=== PATIENT | female | born 1955 | race Hispanic/Latino ===

== ENCOUNTER → 2019-04-06 | Day surgery (SDC) | payer MEDICARE ==
[2019-04-05 11:28] LABS: BASOPHILS # (AUTO) 0.1 (0.0-0.1); BASOPHILS % 0.8 % (0.0-1.0); EOSINOPHILS # (AUTO) 0.4 (0.0-0.4); EOSINOPHILS % 4.2 % (0.0-6.0); HEMOGLOBIN 13.7 g/dL (12.0-16.0); LYMPHOCYTES # (AUTO) 2.4 (1.0-3.2); LYMPHOCYTES % 27.6 % (18.0-39.1); MEAN CORPUSCULAR HEMOGLOBIN 30.4 pg (28-32); MEAN CORPUSCULAR HGB CONC 31.9 g/dL (31-35); MEAN CORPUSCULAR VOLUME 95.3 fL (81-99); MONOCYTES # (AUTO) 0.5 (0.2-0.8); MONOCYTES % 6.1 % (4.4-11.3); NEUTROPHILS # (AUTO) 5.3 (2.1-6.9); NEUTROPHILS % 61.2 % (38.7-80.0); PLATELET COUNT 309 x10e3/uL (140-360); RED BLOOD COUNT 4.51 x10e6/uL (3.6-5.1); RED CELL DISTRIBUTION WIDTH 13.2 % (11.7-14.4)
[2019-04-05 11:44] LABS: BLOOD UREA NITROGEN 12 mg/dL (7-26); BUN/CREATININE RATIO 16 (6-25); CALCIUM 9.2 mg/dL (8.4-10.2); CARBON DIOXIDE 30 mmol/L (22-29); CHLORIDE 101 mmol/L (98-107); CREATININE, SERUM 0.74 mg/dL (0.57-1.11); EST GLOMERULAR FILTRATION RATE > 60 ML/MIN (60-); GLUCOSE 104 mg/dL (74-118); SODIUM 139 mmol/L (136-145)
--- NOTE | 2019-04-05 12:07 | Diagnostic Imaging Report ---
EXAMINATION: CHEST 2 VIEWS INDICATION: Pre-operative COMPARISON: None FINDINGS: LINES/TUBES:None LUNGS:The lung volumes are low. No focal consolidation or pulmonary edema. Bibasilar subsegmental atelectasis. PLEURA:No pleural effusion or pneumothorax. MEDIASTINUM:The cardiomediastinal silhouette appears normal in size and shape. Atherosclerotic calcifications of the thoracic aorta. BONES/SOFT TISSUES:No acute osseous injury. ABDOMEN:No free air under the diaphragm. Status post cholecystectomy. IMPRESSION: Low lung volumes. No focal pneumonia or pulmonary edema. Mild bibasilar subsegmental atelectasis. Signed by: Kayce Luis MD on 04/05/2019 12:04 PM
[~2019-04-06] MED LIST: ACETAMINOPHEN 1000 MG/100 ML IV ONE; ALBUTEROL SULF 0.083% NEB SOLN 3 ML NEB ONE; ALBUTEROL0.63 MG/3 INH; AMLODIPINE BESYL5 MG PO; ANORO INH; BENICAR HCT 401 EACH PO; BUPIVACAINE 0.5%/EPI 30 ML SDV INJ ONE; CEFAZOLIN SOD 1 GM/NS 50ML 100 ML IV ONE; DEXAMETHASONE SOD PHOS INJ 4 MG/ML VIAL ONE; EPINEPHRINE 1 MG/ML 30ML VIAL ONE; FENTANYL CITRATE/PF 100MCG/2 ML INJ ONE; HYDROMORPHONE 2MG/ML 2 MG/ML ML ONE; LIDOCAINE 2%/ EPINEPHRINE 20ML MDV ONE; LIDOCAINE HCL 2% JELLY 5 ML TUBE ONE; LIDOCAINE HCL 2% LOCAL INJ 5 ML SDV VIAL INJ ONE; METOCLOPRAMIDE HCL 10 MG/2ML VIAL ONE; MIDAZOLAM HCL 2 MG/2 ML VIAL ONE; NAPROXEN250 MG PO; ONDANSETRON HCL INJ 2MG/ML 2ML 2 MG/ML VIAL ONE; PROPOFOL IV EMULSION 10 MG/ML 20 ML VIAL ONE; ROCURONIUM BROMIDE 10 MG/ML 5ML VIAL ONE; ROPIVACAINE 0.5% 5 MG/ML 30 ML SDV ONE; SEVOFLURANE INHAL SOLN 250 ML PEN BTL ONE
--- OUTSIDE RECORDS SUMMARY | 2019-04-06 06:19 | XMS REPORT ---
Author Author [facility] Address Unknown Phone Unavailable Care Team Providers Care Hand Hide Stretcher Name Role Phone ROM ARMANDO Unavailable Unavailable Payers Payer Name Policy Type Policy Number Effective Date Expiration Date Problems This patient has no known problems. Allergies, Adverse Reactions, Alerts Allergy Name Allergy Type Status Severity Reaction(s) Onset Date Inactive Date Treating Clinician Comments No Known Allergies DA Active U 2018-03-29 00:00:00 Medications This patient has no known medications. Results Test Description Test Time Test Comments Text Results Atomic Results Result Comments CHEST 2 VIEWS 2019-04-05 12:03:00 [place] [address] Patient Name: MARCELA QUINTERO MR #: [id number] : 1955 Age/Sex: 64/F Req #: [id number] Adm Physician: Ordered by: ROM ARMANDO MD Report #: [id number] Location: OR Room/Bed: Procedure: [id number] DX/CHEST 2 VIEWS Exam Date: 04/05/19 Exam Time: 1105 REPORT STATUS: Signed EXAMINATION: CHEST 2 VIEWS INDICATION: Pre-operative COMPARISON: None FINDINGS: LINES/TUBES:None LUNGS:The lung volumes are low. No focal consolidation or pulmonary edema. Bibasilar subsegmental atelectasis. PLEURA:No pleural effusion or pneumothorax. MEDIASTINUM:The cardiomediastinal silhouette appears normal in size and shape. Atherosclerotic calcifications of the thoracic aorta. BONES/SOFT TISSUES:No acute osseous injury. ABDOMEN:No free air under the diaphragm. Status post cholecystectomy. IMPRESSION: Low lung volumes. No focal pneumonia or pulmonary edema. Mild bibasilar subsegmental atelectasis. Signed by: Luz Maria Newton MD on 04/05/2019 12:04 PM Dictated By: LUZ MARIA NEWTON MD 1204 Transcribed By: HENRY on 04/05/19 1204 COPY TO: ROM ARMANDO MD
[2019-04-06 11:30] VITALS: BP 132/65
--- NOTE | 2019-04-07 14:12 | Operative Report ---
DATE OF PROCEDURE: 04/06/2019 SURGEON: Faheem Vick MD PREOPERATIVE DIAGNOSES: Left shoulder rotator cuff tear, left shoulder acromioclavicular joint arthritis. POSTOPERATIVE DIAGNOSES: Left shoulder partial rotator cuff tear, left shoulder synovitis, left shoulder intra-articular loose body, left shoulder labral tear, left shoulder acromioclavicular joint arthritis. OPERATIONS AND PROCEDURES PERFORMED: The patient underwent a left shoulder examination under anesthesia, a left shoulder arthroscopy, left shoulder debridement of synovitis, a left shoulder arthroscopic debridement of a partial rotator cuff tear, left shoulder removal of intra-articular loose body, a left shoulder arthroscopic biceps tenodesis, a left shoulder arthroscopic subacromial decompression and acromioplasty and a left shoulder arthroscopic distal clavicle resection. MEDICAL CENTER MANAGER: Janina Braga. ANESTHESIA: Regional block plus general anesthesia. IV FLUIDS: Per the anesthesia record. BLOOD LOSS: Less than 10 mL. BRIEF DESCRIPTION OF THE PATIENT'S OPERATIVE PROCEDURE: Ms. Welch was taken to the operating room, placed in the supine position on the operating table. Following the application of a regional block and general anesthesia, the patient's surgical table was converted to a beach chair type position. Examination of the left shoulder demonstrated no gross abnormalities. Passive range of motion of the shoulder joint was full. There was no evidence of instability. The patient's shoulder and upper extremity were prepped and draped in standard surgical fashion. Standard posterolateral and anterior portals were created without difficulty. The scope was placed in the shoulder joint atraumatically. Examination of the glenohumeral articulation demonstrated no significant evidence of arthrosis. There was an intra-articular loose body within the shoulder joint. There was a mild articular surface rotator cuff tear. A probe was placed in the shoulder joint. Examination of the biceps tendon found up the tendon was intact. The anchor of the biceps tendon, however, was severely torn. There was also deficient tissue anteriorly. The labral injury was debrided and given the degree of damage, decision was made to provide the patient a biceps tenodesis. The rotator interval was debrided using a motorized shaver. Sutures were shuttled through the rotator interval capturing the biceps tendon. The biceps tendon was then released from its insertion into the superior rim of the labrum. A shaver was then used to remove the intra-articular loose body. The rotator cuff injury was also debrided at this time. The shoulder also demonstrated diffuse synovitis and the synovitis was debrided at this time. The shoulder was inflated with sterile normal saline. The scope was placed in the subacromial space and significant bursal inflammation was encountered. A lateral portal was created to an outside in technique. The shaver was placed in the shoulder and a bursectomy was performed. The sutures for the biceps tenodesis were identified at the rotator interval. These sutures were captured and tied over the rotator interval completing the biceps tenodesis. The coracoacromial ligament was then resected. The patient was found to have a downward sloping acromion. There was significant wear and inflammation in the bursal surface of the rotator cuff. This was also gently debrided. There was no evidence of a significant tear of the bursal surface of the rotator cuff. An acromioplasty was then performed. Attention was then turned to the acromioclavicular joint. The anterior portal was transferred into the subacromial space at the level of the AC joint. The shaver was transferred to the anterior portal and a 1 cm section of the distal clavicle was resected. Completion of the AC joint resection was confirmed using the scope both through the lateral portal and the anterior portal. The shoulder was inflated with sterile normal saline. The portal sites were closed and sterile dressings were applied. The patient was provided a shoulder immobilizer and awakened and taken to the postanesthesia care unit in stable condition. Janina Braga acted as waiter/waitress first class for this case and was necessary for both prepping and draping the patient as well as the positioning of the arm and the passage of suture that allowed this case to be successful. MD TERRANCE Maravilla/KAI /[id number]
== END | disposition home or self-care (01) ==
LOC: OR 06:01
PROVIDERS: ATTEND Specialist
DX: S46.092A Other injury of muscle(s) and tendon(s) of the rotator cuff of left shoulder, initial encounter (principal); M19.012 Primary osteoarthritis, left shoulder; J45.909 Unspecified asthma, uncomplicated; I10 Essential (primary) hypertension; Z87.891 Personal history of nicotine dependence; W01.10XA Fall on same level from slipping, tripping and stumbling with subsequent striking against unspecified object, initial encounter; Y92.009 Unspecified place in unspecified non-institutional (private) residence as the place of occurrence of the external cause
CPT/HCPCS: 29826; 29827; 29828; 36415; 71046; 80048; 85025; 93005; J0131; J0690; J1100; J1170; J2001 ×3; J2250; J2405; J2704; J2765; J2795; J3010

== ENCOUNTER → 2019-06-08 | Day surgery (SDC) | payer MEDICARE ==
[2019-06-02 09:24] LABS: BASOPHILS # (AUTO) 0.1 (0.0-0.1); BASOPHILS % 0.5 % (0.0-1.0); EOSINOPHILS # (AUTO) 0.3 (0.0-0.4); HEMATOCRIT 41.3 % (34.2-44.1); HEMOGLOBIN 13.4 g/dL (12.0-16.0); LYMPHOCYTES # (AUTO) 2.6 (1.0-3.2); LYMPHOCYTES % 23.2 % (18.0-39.1); MEAN CORPUSCULAR HEMOGLOBIN 30.9 pg (28-32); MEAN CORPUSCULAR HGB CONC 32.4 g/dL (31-35); MEAN CORPUSCULAR VOLUME 95.2 fL (81-99); MONOCYTES # (AUTO) 0.7 (0.2-0.8); MONOCYTES % 6.5 % (4.4-11.3); NEUTROPHILS # (AUTO) 7.4 (2.1-6.9); NEUTROPHILS % 66.4 % (38.7-80.0); PLATELET COUNT 302 x10e3/uL (140-360); RED BLOOD COUNT 4.34 x10e6/uL (3.6-5.1); RED CELL DISTRIBUTION WIDTH 13.6 % (11.7-14.4)
[~2019-06-08] MED LIST changes: -ACETAMINOPHEN 1000 MG/100 ML IV ONE; -ALBUTEROL SULF 0.083% NEB SOLN 3 ML NEB ONE; +BREO ELLIPTA INH; -BUPIVACAINE 0.5%/EPI 30 ML SDV INJ ONE; -CEFAZOLIN SOD 1 GM/NS 50ML 100 ML IV ONE; -EPINEPHRINE 1 MG/ML 30ML VIAL ONE; +EPINEPHRINE HCL 1:1000 1ML 1 MG/ML AMP ONE; +EYE LUBRICANT OPTH OINT 3.5GM TUBE OP ONE; +GLYCOPYRROLATE INJ 1MG/ 5 ML SYR ONE; -HYDROMORPHONE 2MG/ML 2 MG/ML ML ONE; +LEVOCETIRIZINE D5 MG PO; -LIDOCAINE 2%/ EPINEPHRINE 20ML MDV ONE; -LIDOCAINE HCL 2% JELLY 5 ML TUBE ONE; +LIDOCAINE HCL 4% 50 ML BTL ONE; -METOCLOPRAMIDE HCL 10 MG/2ML VIAL ONE; +NEOSTIGMINE 5 MG/5ML SYR ONE; -ROPIVACAINE 0.5% 5 MG/ML 30 ML SDV ONE; +SUGAMMADEX SODIUM 200 MG/2 ML VIAL IV ONE
--- NOTE | 2019-06-08 09:31 | Diagnostic Imaging Report ---
EXAMINATION: CHEST SINGLE (PORTABLE) INDICATION: Postoperative COMPARISON: Chest radiograph 04/05/2019 FINDINGS: LINES/TUBES:EKG leads overlie the chest. LUNGS:The lung volumes are low. Mild bibasilar subsegmental atelectasis. No focal consolidation. PLEURA:No pleural effusion or pneumothorax. MEDIASTINUM:The cardiomediastinal silhouette appears unchanged in size and shape. BONES/SOFT TISSUES:No acute osseous injury. ABDOMEN:No free air under the diaphragm. IMPRESSION: Low lung volumes with mild bibasilar subsegmental atelectasis. Signed by: Kayce Luis MD on 06/08/2019 9:28 AM
[2019-06-08 10:55] VITALS: BP 131/62
[2019-06-08 13:01] LABS: BODY FLUID COLOR STRAW; BODY FLUID TYPE SEE COMMENTS
[2019-06-08 13:02] LABS: BODY FLUID APPEARANCE CLOUDY; RBC,BODY FLUID 4271 cells/uL; WBC,BODY FLUID 153 cells/uL
[2019-06-08 13:44] LABS: LYMPHOCYTES,BODY FLUID 41 %; MONO/MACROPHG,BODY FLUID 2 %; NEUTROPHILS,BODY FLUID 2 %; OTHER CELLS,BODY FLUID 55 %
--- NOTE | 2019-06-08 14:46 | Operative Report ---
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 POSTOPERATIVE DIAGNOSIS: Inflammatory interstitial pneumonitis. PROCEDURE: Bronchoscopy with transbronchial biopsy and bronchoalveolar lavage. ANESTHESIA: The Anesthesia Service provided endotracheal intubation and MAC anesthesia. PROCEDURE IN DETAIL: The patient was placed in a supine position. Endotracheal tube was placed by Anesthesia. The scope was advanced through the endotracheal tube. The tracheal mucosa and the jose r appeared normal. The right tracheobronchial tree was examined. The right upper lobe was normal to the subsegmental level. There were no endobronchial lesions. The right middle lobe and right lower lobe were all normal to the subsegmental level. There were no endobronchial lesions. The scope was repositioned into the left tracheobronchial tree. The left upper lobe and lingula were normal to the subsegmental level. There were no endobronchial lesions. The scope was then positioned into the left lower lobe. The superior segment as well as the basal segments were all normal with no endobronchial lesions. The scope was then positioned into the lateral posterior basilar segment. Fluoroscopy was used and the biopsy forceps were advanced into the lateral subsegment. Biopsies x3 were obtained under direct fluoroscopic guidance. The scope was then repositioned into the left upper lobe. Brushing was used to obtain a microbiology sample. The scope was then wedged and a bronchoalveolar lavage was performed. The scope was then repositioned into the right tracheobronchial tree. Microbiology brushing was used to obtain specimens from the right upper lobe. Washings were also obtained from the right lung. COMPLICATIONS: None. ESTIMATED BLOOD LOSS: None. Dereje Tapia MD [facility] /[id number]
== END | disposition home or self-care (01) ==
LOC: ENDO 06:11
PROVIDERS: ATTEND Internal Medicine Critical Care Medicine
DX: J84.113 Idiopathic non-specific interstitial pneumonitis (principal); J44.9 Chronic obstructive pulmonary disease, unspecified; I10 Essential (primary) hypertension; T78.40XA Allergy, unspecified, initial encounter; X58.XXXA Exposure to other specified factors, initial encounter; Z01.810 Encounter for preprocedural cardiovascular examination; Z01.812 Encounter for preprocedural laboratory examination; Z68.34 Body mass index [BMI] 34.0-34.9, adult
CPT/HCPCS: 31623; 31624; 31629; 36415 ×2; 71045; 85025; 87070; 87102; 87110; 87116; 87205; 87206 ×2; 87335; 88305; 89051; 93005; J1100; J2001; J2250; J2405; J2704; J3010; J3490; 31625; J0171

== ENCOUNTER 2019-12-14 15:49 | Observation (INO) | payer BC, MEDICARE ==
[~2019-12-14] VITALS: Ht 160 cm; Wt 90.3 kg
[~2019-12-14 15:49] MED LIST changes: -DEXAMETHASONE SOD PHOS INJ 4 MG/ML VIAL ONE; -EPINEPHRINE HCL 1:1000 1ML 1 MG/ML AMP ONE; -EYE LUBRICANT OPTH OINT 3.5GM TUBE OP ONE; -FENTANYL CITRATE/PF 100MCG/2 ML INJ ONE; -GLYCOPYRROLATE INJ 1MG/ 5 ML SYR ONE; -LIDOCAINE HCL 2% LOCAL INJ 5 ML SDV VIAL INJ ONE; -LIDOCAINE HCL 4% 50 ML BTL ONE; -MIDAZOLAM HCL 2 MG/2 ML VIAL ONE; -NEOSTIGMINE 5 MG/5ML SYR ONE; -ONDANSETRON HCL INJ 2MG/ML 2ML 2 MG/ML VIAL ONE; -PROPOFOL IV EMULSION 10 MG/ML 20 ML VIAL ONE; -ROCURONIUM BROMIDE 10 MG/ML 5ML VIAL ONE; -SEVOFLURANE INHAL SOLN 250 ML PEN BTL ONE; -SUGAMMADEX SODIUM 200 MG/2 ML VIAL IV ONE
[2019-12-14] MEDS ORDERED: SODIUM CHLORIDE 0.9% 1000ML 1,000 ML IV STA (15:57)
[2019-12-14 16:29] LABS: BASOPHILS # (AUTO) 0.1 (0.0-0.1); BASOPHILS % 0.6 % (0.0-1.0); EOSINOPHILS # (AUTO) 0.4 (0.0-0.4); EOSINOPHILS % 3.7 % (0.0-6.0); HEMATOCRIT 41.8 % (34.2-44.1); HEMOGLOBIN 13.4 g/dL (12.0-16.0); LYMPHOCYTES # (AUTO) 3.1 (1.0-3.2); LYMPHOCYTES % 27.9 % (18.0-39.1); MEAN CORPUSCULAR HEMOGLOBIN 30.2 pg (28-32); MEAN CORPUSCULAR HGB CONC 32.1 g/dL (31-35); MEAN CORPUSCULAR VOLUME 94.1 fL (81-99); MONOCYTES # (AUTO) 0.8 (0.2-0.8); MONOCYTES % 6.9 % (4.4-11.3); NEUTROPHILS # (AUTO) 6.7 (2.1-6.9); NEUTROPHILS % 60.7 % (38.7-80.0); PLATELET COUNT 353 x10e3/uL (140-360); RED BLOOD COUNT 4.44 x10e6/uL (3.6-5.1); RED CELL DISTRIBUTION WIDTH 13.4 % (11.7-14.4)
[2019-12-14 16:41] LABS: INR 0.94; PROTHROMBIN TIME 13.1 seconds (11.9-14.5)
[2019-12-14 16:42] LABS: PARTIAL THROMBOPLASTIN TIME 29.8 seconds (23.8-35.5)
[2019-12-14 16:51] LABS: ALANINE AMINOTRANSFERASE 13 IU/L (0-55); ALBUMIN 3.3 g/dL (3.5-5.0); ALBUMIN/GLOBULIN RATIO 0.8 (0.8-2.0); ALKALINE PHOSPHATASE 78 IU/L (40-150); ANION GAP 11.7 mmol/L (8-16); BLOOD UREA NITROGEN 11 mg/dL (7-26); BUN/CREATININE RATIO 14 (6-25); CALCIUM 9.8 mg/dL (8.4-10.2); CARBON DIOXIDE 31 mmol/L (22-29); CHLORIDE 102 mmol/L (98-107); CREATINE KINASE 67 IU/L (29-168); CREATININE, SERUM 0.81 mg/dL (0.57-1.11); EST GLOMERULAR FILTRATION RATE > 60 ML/MIN (60-); GLUCOSE 91 mg/dL (74-118); POTASSIUM 3.7 mmol/L (3.5-5.1); SODIUM 141 mmol/L (136-145)
[2019-12-14] MEDS ORDERED: SODIUM CHLORIDE 0.9% 1000ML 1,000 ML IV SCH (17:03)
[2019-12-14] MEDS ORDERED: GLUCAGON FOR INJ 1 MG VIAL IV ONE (17:15)
[2019-12-14] MEDS ORDERED: ONDANSETRON HCL INJ 2MG/ML 2ML 2 MG/ML VIAL IV PRN (17:15)
[2019-12-14] MEDS ORDERED: AMLODIPINE BESYL5 MG PO (18:03)
[2019-12-14] MEDS ORDERED: LEVOCETIRIZINE D5 MG PO (18:03)
[2019-12-14 18:38] VITALS: BP 150/87
[2019-12-14] MEDS ORDERED: DEXAMETHASONE SOD PHOS INJ 4 MG/ML VIAL ONE (18:38)
[2019-12-14] MEDS ORDERED: ROCURONIUM BROMIDE 10 MG/ML 5ML VIAL IV ONE (18:38)
[2019-12-14] MEDS ORDERED: SEVOFLURANE INHAL SOLN 250 ML PEN BTL ONE (18:38)
[2019-12-14] MEDS ORDERED: ONDANSETRON HCL INJ 2MG/ML 2ML 2 MG/ML VIAL ONE (18:38)
[2019-12-14] MEDS ORDERED: LIDOCAINE HCL 2% LOCAL INJ 5 ML SDV VIAL INJ ONE (18:38)
[2019-12-14] MEDS ORDERED: PROPOFOL IV EMULSION 10 MG/ML 20 ML VIAL ONE (18:38)
[2019-12-14] MEDS ORDERED: SUCCINYLCHOLINE CHLORIDE 20 MG/ML 10ML VIAL ONE (18:38)
[2019-12-14] MEDS ORDERED: GLYCOPYRROLATE INJ 0.2 MG/ML VIAL ONE (18:38)
[2019-12-14] MEDS ORDERED: SODIUM CHLORIDE 0.9% 50ML 50 ML ONE (18:43)
[2019-12-14] MEDS ORDERED: IOPAMIDOL 370 MG/ML 200 ML INFUS..BTL INJ ONE (18:43)
--- NOTE | 2019-12-14 18:48 | Diagnostic Imaging Report ---
EXAM: CT Chest WITH contrast 12/14/2019 3:57 PM INDICATION: ^posible lower esphageal FB/NO PO CONTRAST ^[id number] ^[id number] COMPARISON: Chest x-ray dated 06/08/2019 TECHNIQUE: Chest was scanned utilizing a multidetector helical scanner from the lung apex through the level of the adrenal glands without administration of IV contrast. Coronal and sagittal reformations were obtained. Routine protocol was performed. IV CONTRAST: 100 mL of Isovue-370 COMPLICATIONS: None RADIATION DOSE: Total DLP: 485.66 mGy*cm Estimated effective dose: (DLP x 0.014 x size factor) mSv CTDIvol has been reviewed. It is below the limits set by the Radiation Protocol Committee (RPC). FINDINGS: LINES/ TUBES: None. LUNGS AND AIRWAYS: Prominent mostly peripheral interstitial lung markings. Mild bronchial wall thickening. 5 mm left apical nodule or scarring (series 3, image 19). Airways are normal. PLEURA: The pleural spaces are clear. HEART AND MEDIASTINUM: The thyroid gland is normal. No mediastinal, hilar or axillary lymphadenopathy. The heart is borderline in size.. There is no pericardial effusion. Linear hyperdense material, measuring 2.3 cm in length within mid to upper esophagus (series 2, image 19 and series 400 image 88). UPPER ABDOMEN: Cholecystectomy. 1.6 cm left adrenal nodule. BONES: L1 and L2 vertebral body hemangiomas. Mild degenerative changes of thoracic spine. SOFT TISSUES: Unremarkable. IMPRESSION: Linear hyperdense object within mid to upper esophagus, measuring 2.3 cm in length. Prominent interstitial lung markings, could represent mild fibrotic changes. There is also mild bronchial wall thickening which could represent mild bronchitis in the appropriate clinical context. 5 mm left apical nodule versus scarring. Without risk factors, no follow-up is necessary. With risk factors, follow-up with low-dose chest CT in one year is recommended. Incidentally seen 1.6 cm left adrenal nodule. If clinically indicated, nonurgent adrenal mass protocol CT can be obtained for characterization. Signed by: Dr. Nolan Montiel MD on 12/14/2019 6:44 PM
[2019-12-14] MEDS: METRONIDAZOLE 500MG/NS 100ML 100 ML IV SCH (20:00)
[2019-12-14] MEDS ORDERED: ALBUTEROL SULF 0.083% NEB SOLN 3 ML NEB ONE (20:01)
[2019-12-14] MEDS ORDERED: METRONIDAZOLE 500MG/NS 100ML 100 ML IV ONE (20:03)
[2019-12-14] MEDS ORDERED: PIPER-TAZ 3.375 GM 50 ML ONE (20:03)
[2019-12-14] MEDS ORDERED: PANTOPRAZOLE 40 MG 10ML VIAL IV ONE (20:30)
[2019-12-14 21:04] VITALS: BP 123/75
[2019-12-14] MEDS: PIPER-TAZ 3.375 GM 50 ML IV SCH (21:12)
[2019-12-14 23:10] VITALS: BP 123/75
[2019-12-14] MEDS: METOCLOPRAMIDE HCL 10 MG/2ML VIAL IV SCH (23:10)
[2019-12-15] VITALS (13 sets, daily range): BP systolic 98–151; BP diastolic 57–80
[2019-12-15] MEDS: PIPER-TAZ 3.375 GM 50 ML IV SCH ×4 (02:22→21:47)
[2019-12-15] MEDS: METRONIDAZOLE 500MG/NS 100ML 100 ML IV SCH ×3 (03:07→21:47)
[2019-12-15 05:50] LABS: BASOPHILS % 0.4 % (0.0-1.0); HEMATOCRIT 37.5 % (34.2-44.1); HEMOGLOBIN 12.1 g/dL (12.0-16.0); LYMPHOCYTES # (AUTO) 1.3 (1.0-3.2); LYMPHOCYTES % 15.8 % (18.0-39.1); MEAN CORPUSCULAR HEMOGLOBIN 30.3 pg (28-32); MEAN CORPUSCULAR HGB CONC 32.3 g/dL (31-35); MEAN CORPUSCULAR VOLUME 93.8 fL (81-99); MONOCYTES # (AUTO) 0.1 (0.2-0.8); MONOCYTES % 1.4 % (4.4-11.3); NEUTROPHILS # (AUTO) 6.6 (2.1-6.9); PLATELET COUNT 322 x10e3/uL (140-360); RED CELL DISTRIBUTION WIDTH 13.3 % (11.7-14.4)
[2019-12-15 06:10] LABS: ALANINE AMINOTRANSFERASE 12 IU/L (0-55); ALBUMIN 2.7 g/dL (3.5-5.0); ALBUMIN/GLOBULIN RATIO 0.8 (0.8-2.0); ALKALINE PHOSPHATASE 62 IU/L (40-150); ANION GAP 7.1 mmol/L (8-16); BLOOD UREA NITROGEN 10 mg/dL (7-26); BUN/CREATININE RATIO 13 (6-25); CALCIUM 8.6 mg/dL (8.4-10.2); CARBON DIOXIDE 26 mmol/L (22-29); CHLORIDE 110 mmol/L (98-107); CREATININE, SERUM 0.77 mg/dL (0.57-1.11); EST GLOMERULAR FILTRATION RATE > 60 ML/MIN (60-); GLUCOSE 151 mg/dL (74-118); POTASSIUM 4.1 mmol/L (3.5-5.1); SODIUM 139 mmol/L (136-145)
[2019-12-15] MEDS: METOCLOPRAMIDE HCL 10 MG/2ML VIAL IV SCH ×3 (06:55→17:16)
[2019-12-15] MEDS ORDERED: SODIUM CHLORIDE 0.9% 250ML 250 ML IV ONE (07:20)
[2019-12-15] MEDS: SODIUM CHLORIDE 0.9% 1000ML 1,000 ML IV SCH ×2 (08:00→16:35)
[2019-12-15] MEDS: PANTOPRAZOLE 40 MG 10ML VIAL IV SCH ×2 (08:41→21:47)
[2019-12-15 10:40] LABS: CHOL/HDL RATIO 4.6 (3.0-3.6)
--- NOTE | 2019-12-15 12:55 | Operative Report ---
DATE OF PROCEDURE: 12/14/2019 SURGEON: Dk Barragan MD PROCEDURE: EGD with foreign body removal and biopsies. INDICATIONS FOR PROCEDURE: Foreign body in esophagus. MEDICATIONS: The patient was done under general endotracheal anesthesia, please see anesthesiologist's note. PROCEDURE IN DETAIL: With the patient in the left lateral decubitus position, after adequate induction of general endotracheal anesthesia, a flexible fiberoptic Olympus gastroscope was introduced into the esophagus under direct visualization without any difficulty. An approximately 2.5 cm bony structure was noted to be embedded in the esophageal mucosa in the cervical esophagus, that was gently removed per the cold biopsy forceps and was retrieved and sent to the pathologist for identification. The scope was then advanced with ease into the distal esophagus. There were some patchy areas of erythema. Focal nodularity was noted at the GE junction, that was biopsied. The scope was then advanced with ease into the stomach. Mucosa overlying the antrum and the body revealed some patchy erythema and mild edema. Biopsies were obtained and sent to stain for H pylori. Pylorus was of normal contour and shape, it was intubated with ease and the scope was advanced all the way to the second portion of the duodenum. The scope was then withdrawn slowly. Mucosa overlying the proximal second portion and the duodenal bulb appeared to be within normal limits. The scope was then withdrawn back into the stomach and retroflexed. Mucosa overlying the fundus and the cardia appeared to be within normal limits. The scope was then straightened out, it was subsequently withdrawn. The patient tolerated the procedure well. IMPRESSION: 1. Piece of bone, imbedded in the cervical esophagus, removed per cold biopsy forceps. 2. Distal esophagitis. 3. Focal nodularity at GE junction, biopsied. 4. Gastritis, biopsied. Biopsies sent to stain for Helicobacter pylori. PLAN: Follow up histology. Protonix 40 mg IV b.i.d., Zosyn 3.375 g IV piggyback q.6 hours, and Flagyl 500 mg IV piggyback q.6 hours. We will keep the patient n.p.o. for the night. Dk Barragan MD [facility] [place] /[id number] cc: Feliciano Bolanos MD
[2019-12-15] MEDS: BREO ELLIPTA INH SCH (16:35)
[2019-12-15] MEDS ORDERED: AMLODIPINE BESYLATE 5 MG TAB PO SCH (21:00)
[2019-12-16] VITALS (7 sets, daily range): BP systolic 117–144; BP diastolic 58–80
[2019-12-16] MEDS ORDERED: ACETAMINOPHEN 325 MG TAB PO PRN (00:30)
[2019-12-16] MEDS: SODIUM CHLORIDE 0.9% 1000ML 1,000 ML IV SCH (00:57)
[2019-12-16] MEDS: PIPER-TAZ 3.375 GM 50 ML IV SCH (03:00)
[2019-12-16] MEDS: METRONIDAZOLE 500MG/NS 100ML 100 ML IV SCH (04:47)
[2019-12-16] MEDS: BREO ELLIPTA INH SCH (06:00)
[2019-12-16] MEDS: METOCLOPRAMIDE HCL 10 MG/2ML VIAL IV SCH ×2 (06:39)
[2019-12-16] MEDS ORDERED: OLMESARTAN 20 MG TAB PO SCH (09:00)
[2019-12-16] MEDS ORDERED: HYDROCHLOROTHIAZIDE 25 MG TAB PO SCH (09:00)
[2019-12-16] MEDS: PANTOPRAZOLE 40 MG 10ML VIAL IV SCH (09:08)
[2019-12-16] MEDS ORDERED: ATORVASTATIN 40 MG TAB PO SCH (21:00)
== END 2019-12-16 14:42 | disposition home or self-care (01) ==
LOC: ER 15:49 → ERHOLD 17:06 → MED/SURG2 18:22
PROVIDERS: ADMIT Internal Medicine; ATTEND Internal Medicine
DX: T18.128A Food in esophagus causing other injury, initial encounter (principal); K21.0 Gastro-esophageal reflux disease with esophagitis; K31.7 Polyp of stomach and duodenum; K29.50 Unspecified chronic gastritis without bleeding; K92.89 Other specified diseases of the digestive system; F41.9 Anxiety disorder, unspecified; I10 Essential (primary) hypertension; J45.909 Unspecified asthma, uncomplicated
CPT/HCPCS: 36415; 43239; 71260; 80053; 80061; 82550; 82553; 83036; 84484; 85025; 85610; 85730; 88305; 88311; 88312; 93005; 99284; G0378; J0330; J1100; J1610; J2001; J2405; J2543; J2765; J7030; J7050; Q9967